=== PATIENT | female | born 1965 | race Caucasian/White ===

== ENCOUNTER → 2019-12-11 13:09 | Outpatient (CLI) | payer MEDICAID | END | disposition home or self-care (01) | LOC: D.HCCARDIO 13:09 | PROVIDERS: ATTEND Internal Medicine Cardiovascular Disease | DX: I20.9 Angina pectoris, unspecified (principal) ==

== ENCOUNTER 2019-12-27 07:18 | Outpatient (CLI) | payer MEDICAID ==
[~2019-12-27] VITALS: Ht 157.5 cm; Wt 75.7 kg
--- NOTE | ~2019-12-27 | HEMODYNAMI ---
PATIENT:OSVALDO JANSEN MEDICAL RECORD: [id number] : 69 LOCATION:D.CAT ADMISSION DATE: 12/27/19 Generatedon:12/27/20199:15 Patient name: OSVALDO JANSEN Patient #: [id number] SSN: : 1965 Date of study: 12/27/2019 Page: Of Hemodynamic Procedure Report Patient Data Patient Demographics Procedure consent was obtained First Name: OSVALDO Gender: Female Last Name: JUSTYNA : 1965 Patient #: [id number] Age: 54 year(s) Race: Unknown Additional ID: [id number] Contact details [address]: [address] [place] [address] State: [place] City: [place] Zip code: [address] Past Medical History Allergies Allergen Reaction Date Comments Reported Other allergy 12/27/2019 CODIENE Admission Admission Data Admission Date: 12/27/2019 Admission Time: 7:18 Arrival Date: 12/27/2019 Arrival Time: 0:00 Lab Results Lab Result Date: 12/27/2019 Lab Result Time: 0:00 Biochemistry Name Units Result Min Max BUN mg/dl 16 --(---*)-- 7 18 Creatinine mg/dl 1 --(--*-)-- 0.6 1.3 eGFR ml/min 61.15298 *-(----)-- 90 120 NONAFRICAN CBC Name Units Result Min Max Hematocrit % 38.4 *-(----)-- 42 54 Hemoglobin g/dl 12.6 -*(----)-- 13.5 17.5 Procedure Procedure Types Cath Procedure Diagnostic Procedure C [facility] w/Coronaries Sedation Charges Moderate Sedation up to 15 minutes Procedure Description Procedure Date Procedure Date: 12/27/2019 Procedure Start Time: 8:58 Procedure End Time: 9:13 Procedure Staff Name Function Joshua Hernandez MD Performing Physician Margie Patterson RT Monitor Sherly Lennon RN Nurse Camille Lehman RT Scrub Indication Angina Procedure Data Cath Procedure Fluoroscopy Diagnostic fluoroscopy Total fluoroscopy Time: 1.6 time: 1.6 min min Diagnostic fluoroscopy Total fluoroscopy dose: 366 dose: 366 mGy mGy Contrast Material Contrast Material Type Amount (ml) Isovue 300 48 Entry Location Entry Primary Successful Side Size Upsize Upsize Entry Closure Succes sful Closure Location (Fr) 1 (Fr) 2 (Fr) Remarks Device Remarks Femoral Right 5 Fr Exoseal artery Estimated blood loss: 5 ml Diagnostic catheters Device Type Used For End Catheter Placement MULTIPACK JL 4.0 5Fr Left Coronary catheter Angiography MULTIPACK 3DRC 5Fr Right Coronary catheter Angiography MULTIPACK Pigtail 5 Fr LV Angiography catheter Procedure Complications No complications Procedure Medications Medication Administration Route Dosage 0.9% NaCl I.V. 100 ml/hr Oxygen etCO2 Nasal cannula 2 l/min Lidocaine 2% added to field 20 Heparin Flush Bag added to field 2 bags (1000units/500ml NS) Versed I.V. 2 mg Fentanyl I.V. 50 mcg Versed I.V. 2 mg Fentanyl I.V. 50 mcg Hemodynamics Rest HGB: 12.6 (g/dl) Heart Rate: 77 (bpm) Pressure Samples Time Site Value (mmHg) Purpose Heart Use Rate(bpm) 9:08 LV 157/-13,12 Snapshot 81 Gradients Valve Time Site Site Mean SEP/DFP Peak To Heart Use 1 2 (mmHg) (sec/min) Peak Rate (mmHg) (bpm) Aortic 9:09 LV AO 73 Snapshots Pre Cath Intra NCS Post Cath Vital Signs Time Heart Resp SPO2 etCO2 NIBP (mmHg) Rhythm Pain Sedation Rate (ipm) (%) (mmHg) Status Level (bpm) 8:42:29 95 16 100 26 145/83(116) NSR 0 (11) 10(A) , No pain 8:46:45 82 11 100 29.9 142/83(105) NSR 0 (11) 10(A) , No pain 8:50:57 77 13 97 39.6 129/84(101) NSR 0 (11) 10(A) , No pain 8:55:07 79 11 98 37.4 123/85(99) NSR 0 (11) 10(A) , No pain 8:59:15 70 15 100 40.4 125/84(111) NSR 0 (11) 10(A) , No pain 9:03:27 77 10 99 26.2 116/74(103) NSR 0 (11) 9(A) , No pain 9:07:37 76 15 99 39.6 114/73(99) NSR 0 (11) 10(A) , No pain 9:11:43 76 10 99 36.7 127/78(94) NSR 0 (11) 10(A) , No pain Medications Time Medication Route Dose Verified Delivered Reason Notes Effe ctiveness by by 8:43:05 0.9% NaCl I.V. 100 Joshua Sherly used for ml/hr David Lennon technical services manager 8:43:12 Oxygen etCO2 2 Joshua Sherly used for Nasal l/min David Lennon procedure cannula RN 8:43:18 Lidocaine 2% added 20ml Joshua Joshua for local to vial David Hernandez MD anesthetic field 8:43:22 Heparin Flush added 2 Joshua Joshua used for Bag to bags David Hernandez MD procedure (1000units/500ml field NS) 8:52:06 Versed I.V. 2 mg Joshua Sherly for David Lennon sedation RN 8:52:18 Fentanyl I.V. 50 Joshua Sherly for mcg David Lennon sedation RN 8:59:25 Versed I.V. 2 mg Joshua Sherly for David Lennon sedation RN 8:59:36 Fentanyl I.V. 50 Joshua Sherly for mcg David Lennon sedation heavy equipment rental manager Log Time Note 8:08:05 Informed consent obtained and on chart 8:10:48 Procedure Status Elective Heart Cath (OP). 8:10:53 Time tracking: Regular hours (M-F 7:00 - 5:00) 8:11:42 Stress Test: yes; abnormal inferior and lateral 8:17:10 Indication : Angina 8:17:22 Arrival Date: 12/27/2019 12:00:00 AM 8:17:54 H&P Date Dictated: 12/27/2019 H&P Addendum completed by physician on day of procedure. (MUST COMPLETE FOR ALL OUTPATIENTS), New H&P dictated by physician.. 8:28:39 Margie NOBLES(R) (CV) sent for patient. Start room use. 8:28:49 Plan of Care:Hemodynamics will remain stable., Cardiac rhythm will remain stable., Comfort level will be maintained., Respiratory function will remain adequate., Patient/ family verbilizes understanding of procedure., Procedure tolerated without complication., Recovers from procedure without complications.. 8:40:13 Patient received from Pre/Post Procedure Room to CCL 1 Alert and oriented. Tansferred to table in Supine position. 8:41:25 Vital chart was started 8:43:05 0.9% NaCl 100 ml/hr I.V. was administered by Sherly Lennon RN; used for procedure; Verbal order read back and verified. 8:43:12 Oxygen 2 l/min etCO2 Nasal cannula was administered by Sherly Lennno RN; used for procedure; Verbal order read back and verified. 8:43:18 Lidocaine 2% 20ml vial added to field was administered by Joshua Hernandez MD; for local anesthetic; Verbal order read back and verified. 8:43:22 Heparin Flush Bag (1000units/500ml NS) 2 bags added to field was administered by Joshua Hernandez MD; used for procedure; Verbal order read back and verified. 8:48:25 Warm blankets applied, and chad hugger turned on for patient comfort. 8:48:27 Correct patient and procedure confirmed by team. 8:48:27 ECG and BP/O2 sat monitors applied to patient. 8:48:28 Baseline sample Acquired. 8:48:33 Rhythm: sinus rhythm 8:48:38 Full Disclosure recording started 8:48:44 8:48:45 Pre-procedure instructions explained to patient. 8:48:46 Pre-op teaching completed and patient verbalized understanding. 8:48:49 Family in waiting room. 8:48:52 Patient NPO since Midnight. 8:49:08 Patient allergic to Other allergyCODIENE 8:49:12 Is the patient allergic to Iodine/contrast media? No. 8:49:17 Was the patient premedicated? Yes 8:49:20 Is patient on blood thinner?No 8:49:25 Patient diabetic? No. 8:49:34 Patient not . Patient has had hysterectomy. 8:49:37 ----Pre-sedation anethsthesia assessment.---- 8:49:40 Previous problem with sedation/anesthesia? No ? 8:49:43 Snore? Yes 8:49:45 Sleep apnea? No 8:49:47 Deviated septum? Unknown 8:49:50 Opens mouth fully? Yes 8:49:53 Sticks out tongue? Yes 8:49:56 Airway obstruction? No ? 8:50:00 Dentures? No ? 8:50:06 Pre procedure: right dorsailis pedis pulse 2+ Normal; easily identifiable; not easily obliterated 8:50:14 Modified Frank's test Ulnar > 7 seconds. 8:50:23 IV patent on arrival in left antecubital with 0.9% NaCl at [facility]. 8:51:34 Lab Result : BUN 16 mg/dl 8:51:34 Lab Result : Creatinine 1 mg/dl 8:51:34 Lab Result : eGFR NONAFRICAN 61.44905 ml/min 8:51:34 Lab Result : Hemoglobin 12.6 g/dl 8:51:34 Lab Result : Hematocrit 38.4 % 8:51:40 Lab results completed and on chart. 8:51:47 Right groin area was prepped with chlora-prep and draped in sterile fashion 8:51:50 Alarms reviewed by R. N. 8:51:50 Sharps counted by scrub and verified by R.N. 8:51:52 Physician arrived 8:51:54 --------ALL STOP TIME OUT------ 8:51:58 Final Timeout: patient, procedure, and site verified with staff and physician. All members of the team are in agreement. 8:52:01 Right groin site verified by team. 8:52:06 Versed 2 mg I.V. was administered by Sherly Lennon RN; for sedation; Verbal order read back and verified. 8:52:18 Fentanyl 50 mcg I.V. was administered by Sherly Lennon RN; for sedation; Verbal order read back and verified. 8:52:21 Fire Safety Assessment: A--An alcohol-based skin anteseptic being used preoperatively., C--Open oxygen or nitrous oxide is being used., D--An ESU, laser, or fiber-optic light is being used. 8:52:26 Physical assessment completed. ASA score P 2 - A patient with mild systemic disease as per Joshua Hernandez MD. 8:52:34 2) 60-89 Mildly reduced kidney function, and other findings (as for stage 1) point to kidney disease. 8:52:40 Maximum allowable contrast dose (3.7 X eGFR X 0.75)172 ml. 8:52:46 Sedation plan: IV Moderate Sedation Medication:Versed, Fentanyl 8:52:52 Use device set Femoral Dx 8:52:54 ACIST Syringe (16389) opened to sterile field. 8:52:54 Bag Decanter (2002S) opened to sterile field. 8:52:55 Medline Cath Pack ([id number]) opened to sterile field. 8:52:57 ACIST Hand Control (54769) opened to sterile field. 8:52:57 ACIST Manifold (20099) opened to sterile field. 8:52:58 DIAGNOSTIC Multipack 5Fr catheter set ([id number]) opened to sterile field. 8:52:59 Tegaderm 4 x 4 (1626W) opened to sterile field. 8:53:02 SHEATH 5FR Lequire ([id number]) opened to sterile field. 8:53:03 EMERALD Guide Wire (841-795) opened to sterile field. 8:55:59 Zero performed for pressure channel P1 8:57:57 Procedure started. 8:58:03 Local anesthetic to right femoral artery with Lidocaine 2% by Joshua Hernandez MD.INITIAL ACCESS ONLY 8:59:25 Versed 2 mg I.V. was administered by Sherly Lennon RN; for sedation; Verbal order read back and verified. 8:59:36 Fentanyl 50 mcg I.V. was administered by Sherly Lennon RN; for sedation; Verbal order read back and verified. 9:01:18 Risk of Mortality: 0.1 9:01:22 Risk of blood transfusion: 0.4 9:01:26 Risk of JAYNE: 0.9 9:02:02 A 5 Fr sheath was inserted into the Right Femoral artery 9:02:11 A MULTIPACK JL 4.0 5Fr catheter was advanced over the wire and used for Left Coronary Angiography. 9:03:15 LCA angiography performed. 9:03:26 Injector settings: Ml/sec: 3, Volume: 6, 9:04:56 Catheter removed. 9:05:03 A MULTIPACK 3DRC 5Fr catheter was advanced over the wire and used for Right Coronary Angiography. 9::23 Injector settings: Ml/sec: 3, Volume: 6, 9:06:48 ACCDominant side:Right 9:06:56 Catheter removed. 9:07:02 A MULTIPACK Pigtail 5 Fr catheter was advanced over the wire and used for LV Angiography. 9:07:14 LV gram done using DE LA CRUZ 9::23 Injector settings: Ml/sec: 5, Volume: 15, 9:08:48 EF : 55 % 9:08:50 LV hemodynamics recorded. 9:09:03 Catheter removed. 9:09:05 EXOSEAL 5Fr (EX500) opened to sterile field. 9:09:32 Sheath removed intact; hemostasis achieved with Exoseal to the Right Femoral artery. 9:09:39 Fluoroscopy time 01.60 minutes. 9:09:44 Fluoroscopy dose: 366 mGy 9:09:44 Flurop Dose total: 366 9:09:53 Dose Area Product 58382 mGy/cm. 9:11:11 Procedure ended.(Physican Out) 9:11:16 Contrast amount:Isovue 300 48ml. 9:11:20 Maximum allowable dose exceeded? No. 9:11:21 Sharps counted by scrub and verified by R.N. 9:11:24 Insertion/operative site no bleeding no hematoma. 9:11:28 Post-op/insertion site Right Femoral artery dressed using a 4 x 4 and Tegaderm. 9:11:34 Post right femoral artery:stable 9:11:38 Post-procedure physical assessment completed. ASA score P 2 - A patient with mild systemic disease as per Joshua Hernandez MD. 9:11:44 Post procedure rhythm: unchanged. 9:11:48 Estimated blood loss: 5 ml 9:11:50 Post procedure instruction explained to patient.Patient verbalizes understanding. 9:11:51 Patient needs reinforcement of post procedure teaching. 9:12:33 Procedure type changed to Cath procedure, Diagnostic procedure, LHC, LHC w/Coronaries, Sedation Charges, Moderate Sedation up to 15 minutes 9:12:36 Procedure and supply charges have been captured, reviewed, submitted and are correct. 9:13:04 Procedure Complication : No complications 9:13:07 Vital chart was stopped 9:13:10 [facility] Findings: mild to moderate CAD (<70%) 9:13:15 Operative report dictated upon procedure completion. 9:13:15 See physician's report for complete and final results. 9:13:18 Report given to Pre/Post Procedure Room. 9:13:22 Patient transfered to Pre/Post Procedure Room with Stretcher. 9:13:26 Procedure ended. 9:13:26 Full Disclosure recording stopped 9:13:29 End room use (Document Last) Device Usage Item Name Manufacture Quantity Catalog Hospital Part Current Minimal L ot# / Number Charge Number Stock Stock Serial# Code ACIST Acist 1 [id number] 209689 568016 364682 20 Syringe Medical (17760) Systems Inc Bag Microtek 1 2001S 691301 97468 520675 5 Decanter Medical Inc. () Medline Medline 1 [id number] 187170 89726 932425 5 Cath Pack ([id number]) ACIST Hand Acist 1 45277 605350 463315 484098 5 Control Medical (92716) Systems Inc ACIST Acist 1 41884 749342 507037 727890 5 Manifold Medical (13827) Systems Inc DIAGNOSTIC Cardinal 1 [id number] 003741 24315 068348 30 Multipack Health 5Fr catheter set (TO6288) Tegaderm 4 3M 1 1626W 509989 347157 699246 5 x 4 (1626W) SHEATH 5FR Terumo 1 SPE908 668118 719887 692458 5 Lequire (DWM928) EMERALD Cardinal 1 502-455 458738 652598 094928 5 Guide Wire Health (502455) MULTIPACK Cardinal 1 994972 5 JL 4.0 5Fr Health catheter MULTIPACK Cardinal 1 363274 5 3DRC 5Fr Health catheter MULTIPACK Cardinal 1 125712 5 Pigtail 5 Health Fr catheter EXOSEAL 5Fr Cardinal 1 EX500 215666 307371 104449 10 (EX500) Health Signature Audit [place] Stage Time Signature Unsigned Intra-Procedure 12/27/2019 Margie 9:13:48 AM Leonardo RT(R) (CV) Intra-Procedure 12/27/2019 Sherly Lennon 9:14:28 AM RN Intra-Procedure 12/27/2019 Joshua Hernandez MD 9:14:59 AM [facility] [address] [place] [address]
[2019-12-27] MEDS ORDERED: ATIVAN1 MG PO (07:39)
[2019-12-27] MEDS ORDERED: LEVOTHYROXINE150 MCG PO (07:40)
[2019-12-27] MEDS ORDERED: VALSARTAN-HCTZ1 EAC1 PO (07:40)
[2019-12-27] MEDS ORDERED: OMEPRAZOLE40 MG PO (07:40)
[2019-12-27] MEDS ORDERED: MERIBIN5 MG PO (07:41)
[2019-12-27] MEDS ORDERED: SUPER B COMPLE1 EAC1 PO (07:41)
[2019-12-27] MEDS ORDERED: CETIRIZINE HCL5 MG PO (07:42)
[2019-12-27] MEDS ORDERED: OMEGA-3100 MG PO (07:42)
[2019-12-27] MEDS ORDERED: ASCORBIC ACID500 MG PO (07:42)
[2019-12-27 07:46] VITALS: BP 147/83; Ht 157.5 cm; Wt 75.7 kg
[2019-12-27 08:17] LABS: BASOPHILS 0.4 % (0-2); EOSINOPHILS 4.5 % (0-7); HEMATOCRIT 38.4 % (36.0-48.0); HEMOGLOBIN 12.6 g/dL (12-16); IMMATURE GRANULOCYTES 0.2 % (0-5); LYMPHOCYTES 26.5 % (15-50); MCH 28.4 pg (26.0-34.0); MCHC 32.8 g/dL (31.0-37.0); MCV 86.7 fL (80.0-100.0); MEAN PLATELET VOLUME 9.3 fL (7.4-10.4); MONOCYTES 6.8 % (2-11); NEUTROPHILS 61.6 % (40-80); PLATELET COUNT 218 10x3/uL (130-400); RBC 4.43 10x6/uL (4.00-5.40); RDW 13.5 % (11.5-14.5); WBC 5.3 10x3/uL (4.8-10.8)
[2019-12-27 08:24] LABS: CALCIUM 8.4 mg/dL (8.5-10.1); CARBON DIOXIDE 25.7 mmol/L (21.0-32.0); CHOL - HDL RATIO 5.2 ratio (2.3-4.1); LDL-HDL RATIO 3.8 ratio (1.5-3.5); POTASSIUM - SERUM 3.7 mmol/L (3.5-5.1)
--- NOTE | 2019-12-27 09:22 | NUR ---
PT ARRIVED BY STRETCHER. PLACED ON MONITORS. ASSESSMENT COMPLETED. VSS AT THIS TIME. CALL LIGHT WITHIN REACH. SPOUSE AT BEDSIDE.
--- NOTE | 2019-12-27 09:37 | NUR ---
PT RESTING COMFORTABLY. VSS. RIGHT GROIN DRESSING C/D/I. NO S/S OF HEMATOMA NOTED. CALL LIGHT WITHIN REACH. FAMILY AT BEDSIDE. NO NEEDS AT THIS TIME. TOLERATING SIPS OF WATER. DENIES NAUSEA/PAIN.
--- NOTE | 2019-12-27 10:06 | NUR ---
DR. AMANDA ROUNDED AND SPOKE WITH PT AND PT'S FAMILY. THEY VOICED UNDERSTANDING. RIGHT GROIN DRESSING C/D/I. NO S/S OF HEMATOMA NOTED. CALL LIGHT WITHIN REACH.
--- NOTE | 2019-12-27 10:34 | NUR ---
RIGHT GROIN DRESSING C/D/I. NO S/S OF HEMATOMA NOTED. CALL LIGHT WITHIN REACH. HEAD OF BED INC TO 30 DEGREES. TOLERATED WELL. PT'S AT BEDSIDE.
--- NOTE | 2019-12-27 11:10 | NUR ---
PIV D/C'D WITH CATH TIP INTACT. TOLERATED WELL. RIGHT GROIN DRESSING C/D/I. NO S/S OF HEMATOMA NOTED. DISCUSSED DISCHARGE INSTRUCTIONS WITH PT. SHE VOICED UNDERSTANDING.
--- NOTE | 2019-12-27 11:13 | NUR ---
PT DRESSED. AMBULATED TO RESTROOM. VOIDED WITHOUT DIFFICULTY. STEADY GAIT NOTED.
--- NOTE | 2019-12-27 11:15 | NUR ---
PT TAKEN DOWN TO VEHICLE BY WHEELCHAIR. NO S/S OF DISTRESS NOTED. ALL BELONGINGS AND PAPERWORK IN HAND. RIGHT GROIN DRESSING C/D/I. NO S/S OF HEMATOMA NOTED.
== END 2019-12-27 11:15 | disposition home or self-care (01) ==
LOC: D.CATH 07:18
PROVIDERS: ATTEND Internal Medicine Cardiovascular Disease
DX: I20.9 Angina pectoris, unspecified (principal); R94.39 Abnormal result of other cardiovascular function study; E07.9 Disorder of thyroid, unspecified; I10 Essential (primary) hypertension; K21.9 Gastro-esophageal reflux disease without esophagitis